=== PATIENT | female | born 1980 | race Caucasian/White ===

== ENCOUNTER 2020-09-14 16:08 | Emergency (ER) | payer OTHER ==
[~2020-09-14] VITALS: Ht 170.2 cm; Wt 68.0 kg
[2020-09-14 16:21] VITALS: BP 123/78
--- NOTE | 2020-09-14 16:44 | RAD ---
Study: XR FEET 3 VIEWS Indication: Pain. Comparison: None. Findings: Right foot: No acute fracture or traumatic malalignment. Maintained joint spaces. Unremarkable soft tissues. Left foot: No acute fracture or traumatic malalignment. Normally configured joint spaces. Unremarkable soft tiss ues. Impression: No acute osseous abnormality seen throughout either foot. Electronically signed by: TOMAS RODARTE MD (09/14/2020 4:41 PM) [id number]
--- NOTE | 2020-09-14 17:00 | PHYS DOC ---
Past History Past Medical History: Migraines (MARIZOL SORIANO APRN) Past Surgical History: No Surgical History (MARIZOL SORIANO APRN) Alcohol Use: None (MARIZOL SORIANO APRN) Adult General Chief Complaint Chief Complaint: FOOT INJURY PAIN HPI HPI Patient is a 40-year-old female patient with no significant medical history who presents to the ED today complaining of mild bilateral feet pain that began today. Patient states she was walking down some steps when she go to the last time she states her right great toe rolled backward and she twisted her left foot. She is complaining of pain today right great toe and left dorsal foot. Denies any navicular pain bilaterally. Denies any pain on the base of the fifth metatarsal bilaterally. States most of the pain is on touching the region as well as weightbearing. She states the pain is intermittent. (MARIZOL SORIANO APRN) Review of Systems Review of Systems Constitutional: Denies fever or chills [] Musculoskeletal: Reports bilateral feet pain Integument: Denies rash or skin lesions [] Neurologic: Denies headache, focal weakness or sensory changes [] All other systems were reviewed and found to be within normal limits, except as documented in this note. (MARIZOL SORIANO APRN) Allergies Allergies Allergies Coded Allergies Type Severity Reaction Last Updated Verified NSAIDS (Non-Steroidal Anti-Inflamma Allergy Unknown 09/14/20 Yes aspirin Allergy Unknown 09/14/20 Yes (MARIZOL SORIANO APRN) Physical Exam Physical Exam Constitutional: Well developed, well nourished, no acute distress, non-toxic appearance. [] Skin: Warm, dry, no erythema, no rash. [] Back: No tenderness, no CVA tenderness Extremities: Bilateral feet with no obvious deformity, slight bruising noted on top of the left foot. No navicular bone tenderness or base of the fifth metatarsal tenderness bilaterally. Slight tenderness on the right great toe MTP joints. Full range of motion to bilateral feet. +2 bilateral pedal pulses. Neurologic: Alert and oriented X 3, normal motor function, normal sensory function, no focal deficits noted. [] Psychologic: Affect normal, judgement normal, mood normal. [] (MARIZOL SORIANO APRN) Current Patient Data Vital Signs Vital Signs Date Time Temp Pulse Resp B/P (MAP) Pulse Ox O2 Delivery O2 Flow Rate FiO2 09/14/20 16:21 98.1 65 18 123/78 (93) 98 (MARIZOL SORIANO APRN) EKG EKG [] (MARIZOL SORIANO APRN) Radiology/Procedures Radiology/Procedures [] PATIENT: SUBHA LAGUNAS ACCOUNT: [id number] : 1980 LOCATION: ER AGE: 40 SEX: F EXAM STATUS: REG ER ORD. PHYSICIAN: MARIZOL SORIANO APRN REASON: pain rolled feet PROCEDURE: FOOT BILAT 3V Study: XR FEET 3 VIEWS Indication: Pain. Comparison: None. Findings: Right foot: No acute fracture or traumatic malalignment. Maintained joint spaces. Unremarkable soft tissues. Left foot: No acute fracture or traumatic malalignment. Normally configured joint spaces. Unremarkable soft tissues. Impression: No acute osseous abnormality seen throughout either foot. Electronically signed by: TOMAS RODARTE MD (09/14/2020 4:41 PM) [id number] DICTATED AND SIGNED BY: TOMAS RODARTE MD DATE: 09/14/20 1639 CC: FILIPE PHAN; MARIZOL SORIANO APRN ~MTH0 0 (MARIZOL SORIANO APRN) Heart Score Risk Factors: Risk Factors: DM, Current or recent (<one month) smoker, HTN, HLP, family history of CAD, obesity. Risk Scores: Risk Factors: DM, Current or recent (<one month) smoker, HTN, HLP, family history of CAD, obesity. (MARIZOL SORIANO APRN) Course & Med Decision Making Course & Med Decision Making Pertinent Labs and Imaging studies reviewed. (See chart for details) This is a 40-year-old female patient presented to the ED today with bilateral feet pain after rolling her left foot and getting her right great toe caught behind her right foot. Bilateral feet x-rays are negative. Discharge home. Ice elevation encouraged. Follow-up with orthopedic doctor in 1 week. OTC pain relievers. (MARIZOL SORIANO APRN) Dragon Disclaimer Dragon Disclaimer This electronic medical record was generated, in whole or in part, using a voice recognition dictation system. (MARIZOL SORIANO APRN) Attending Co-Sign I oversaw on the above date of service of this patient and discussed the care with the BALANCE ASSEMBLER. I agree with the findings, plan of care, and disposition as documented. (SALVADOR HELM DO) Departure Departure: Impression: Primary Impression: Foot sprain Additional Impression: Sprain of foot, left Disposition: 01 DC HOME SELF CARE/HOMELESS Condition: STABLE Referrals: FILIPE PHAN (PCP) TIFFANY MARROQUIN MD follow up in one week Patient Instructions: Joint Sprain Additional Instructions: You were evaluated in the emergency room for bilateral feet pain, your bilateral feet x-rays are negative for any acute findings. Try to ice and elevate the extremities. Take with the counter medications as needed for pain. Follow-up with Dr. Peters in 1 to 2 weeks as needed Problem Qualifiers Primary Impression: Foot sprain Encounter type: initial encounter Laterality: right Qualified Codes: S93.601A - Unspecified sprain of right foot, initial encounter Additional Impression: Sprain of foot, left Encounter type: initial encounter Qualified Codes: S93.602A - Unspecified sprain of left foot, initial encounter MARIZOL SORIANO APRN Sep 14, 2020 17:00 SALVADOR HELM DO Sep 15, 2020 06:19
== END 2020-09-14 17:08 | disposition home or self-care (01) ==
LOC: ER 16:08
DX: S93.601A Unspecified sprain of right foot, initial encounter (principal); G43.909 Migraine, unspecified, not intractable, without status migrainosus; Z88.6 Allergy status to analgesic agent; X50.9XXA Other and unspecified overexertion or strenuous movements or postures, initial encounter; Y93.01 Activity, walking, marching and hiking; Y92.89 Other specified places as the place of occurrence of the external cause; Y99.8 Other external cause status
CPT/HCPCS: 73630; 99283